=== PATIENT | female | born 2000 | race Caucasian/White ===

== ENCOUNTER 2020-06-06 09:22 | Outpatient (REF) | payer OTHER, SELFPAY | END 2020-06-06 09:23 | disposition home or self-care (01) | LOC: HO.WFDLDS 09:22 | PROVIDERS: Visit Provider Internal Medicine | DX: Z20.828 Contact with and (suspected) exposure to other viral communicable diseases (principal) | CPT/HCPCS: C9803; U0003 ==

== ENCOUNTER 2020-09-16 12:50 | Outpatient (REF) | payer OTHER, SELFPAY ==
--- NOTE | ~2020-09-16 | XR_ITS ---
EXAMINATION: XR CHEST CLINICAL INFORMATION: Nonspecific reaction to tuberculin skin test without active tuberculosis COMPARISON: None TECHNIQUE: Frontal view of the chest was obtained. FINDINGS: Lungs are clear. No focal consolidation or mass. Normal pulmonary vascularity. No pleural effusion or pneumothorax. Normal heart size. No acute osseous abnormality. XR/XR chest 1V IMPRESSION: Normal chest. No findings to suggest active intrathoracic tuberculosis.
== END 2020-09-16 12:51 | disposition home or self-care (01) ==
LOC: HO.XRAY 12:50
PROVIDERS: PCP Hospitalist; Visit Provider Hospitalist
DX: R76.11 Nonspecific reaction to tuberculin skin test without active tuberculosis (principal)
CPT/HCPCS: 71045